=== PATIENT | male | born 1955 | race Caucasian/White ===

== ENCOUNTER 2017-03-22 12:06 | Emergency (ER) | payer BC ==
[2017-03-22 12:23] VITALS: BP 138/78
--- NOTE | 2017-03-22 12:42 | UC ---
Abdominal Pain Male HPI - HPI Summary HPI Summary: INTERMITTENT SHARP LOWER ABDOMINAL PAIN OVER THE PAST 2 WEEKS. NO NAUSEA. NO FEVER. DENIES URINARY SX. NOT AFFECTED BY EATING OR BOWEL HABITS. PT THINKS IT IS WORSE WHEN HE WEARS TIGHT FITTING PANTS. - History of Current Complaint Chief Complaint: UCAbdominalPain Stated Complaint: ABD PAIN/CRAMPS Time Seen by Provider: 03/22/17 12:28 Hx Obtained From: Patient Onset/Duration: Gradual Onset, Lasting Weeks, Still Present Severity Initially: Moderate Severity Currently: Moderate Pain Intensity: 5 Pain Scale Used: 0-10 Numeric Location: Suprapubic Radiates: No Character: Aching Associated Signs And Symptoms: Positive: Negative - Allergies/Home Medications Allergies/Adverse Reactions: Allergies Allergy/AdvReac Type Severity Reaction Status Date / Time No Known Allergies Allergy Verified 03/22/17 12:23 PMH/Surg Hx/FS Hx/Imm Hx Endocrine History: Dyslipidemia Cardiovascular History: Hypertension - Surgical History Surgical History: Yes Surgery Procedure, Year, and Place: Left inguinal HERNIA REPAIR - Family History Known Family History: Positive: Hypertension - Social History Alcohol Use: Weekly Substance Use Type: None Smoking Status (MU): Former Smoker Type: Cigarettes When Did the Patient Quit Smoking/Using Tobacco: 1989 Review of Systems Constitutional: Negative Respiratory: Negative Cardiovascular: Negative Gastrointestinal: Abdominal Pain Genitourinary: Negative All Other Systems Reviewed And Are Negative: Yes Physical Exam Triage Information Reviewed: Yes Appearance: Well-Appearing, No Pain Distress, Well-Nourished Vital Signs: Initial Vital Signs Temp 99 F 03/22/17 12:18 Pulse 82 03/22/17 12:18 Resp 18 03/22/17 12:18 BP 138/78 03/22/17 12:18 Pulse Ox 100 03/22/17 12:18 Vital Signs Reviewed: Yes Eyes: Positive: Conjunctiva Clear ENT: Positive: Hearing grossly normal Neck: Positive: Supple Respiratory: Positive: No respiratory distress, No accessory muscle use Cardiovascular: Positive: Pulses Normal Abdomen Description: Positive: Soft, Other: - SUPRAPUBIC TENDERNESS. NO REBOUND OR RIGIDITY. Negative: CVA Tenderness (R), CVA Tenderness (L), Distended, Guarding Bowel Sounds: Positive: Present Musculoskeletal: Positive: No Edema Neurological: Positive: Alert Psychological: Positive: Age Appropriate Behavior Skin: Negative: rashes Diagnostics - Laboratory Diagnostic Studies Completed/Ordered: URINE DIP UNREMARKABLE Abd Pain Male Course/Dx - Differential Dx/Clinical Impression Provider Diagnoses: LOWER ABDOMINAL PAIN, NOS Discharge - Discharge Plan Condition: Stable Disposition: HOME Patient Education Materials: Abdominal Pain (ED) Referrals: Rashad Licea MD [Primary Care Provider] - 2 Weeks Additional Instructions: URINE TEST UNREMARKABLE. UNCLEAR CAUSE OF YOUR DISCOMFORT. TRY WEARING LOOSE FITTING CLOTHING FOR THE NEXT FEW WEEKS TO SEE IF YOUR SYMPTOMS RESOLVE. IF THEY DO NOT THEN FOLLOW-UP WITH DR. LICEA. YOU MAY BENEFIT FROM IMAGING. ABDOMINAL PAIN: There are many causes of abdominal pain. Pain can mean a serious problem requiring surgery (such as appendicitis), or an innocent problem which goes away on its own (such as a viral infection). Often, time must pass to determine the cause of pain. The physician does not feel that hospitalization is necessary, at present. Conditions may change, however, within the next 24 hours. Therefore, call the doctor or come back for re-examination if any problems occur, such as: 1) Pain which becomes more severe, steady, or becomes concentrated in one specific area. Also, pain which is more severe with movement or coughing. 2) Vomiting which persists or becomes more frequent. 3) Blood in the vomitus, urine, or bowel movements. Blood in the stool may have a tarry or black appearance. 4) Shaking chills or fever greater than 100 degrees F. 5) The abdomen becomes more distended or swollen. 6) Bowel movements cease. 7) Failure to improve as expected.
== END 2017-03-22 13:09 | disposition home or self-care (01) ==
LOC: UCCORT 12:06
DX: R10.30 Lower abdominal pain, unspecified (principal); E78.5 Hyperlipidemia, unspecified; I10 Essential (primary) hypertension; Z87.891 Personal history of nicotine dependence
CPT/HCPCS: 81003; 99211; G0463

== ENCOUNTER 2017-09-06 17:24 | Emergency (ER) | payer SELFPAY ==
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
[2017-09-06 17:56] VITALS: BP 147/73
[2017-09-06] MEDS ORDERED: Silver Sulfadiazine 1%* 20 GM TOPICAL ONE (18:04)
--- NOTE | 2017-09-06 18:46 | RAD ---
INDICATION: Left elbow pain. TECHNIQUE: 2 views of the left elbow were obtained. FINDINGS: The bones are in normal alignment. No joint effusion or fracture is seen. Joint spaces appear maintained. There is a small bony spur arising from the posterior aspect of the olecranon process of the ulna. IMPRESSION: SMALL BONY SPUR, OTHERWISE UNREMARKABLE STUDY.
[2017-09-06] MEDS ORDERED: Cephalexin CAP* 500 MG PO ONE (19:00)
[2017-09-06] MEDS ORDERED: Ibuprofen TAB* 400 MG PO ONE (19:00)
== END 2017-09-06 19:17 | disposition home or self-care (01) ==
LOC: UCCORT 17:24
DX: Z87.891 Personal history of nicotine dependence (principal); Z72.89 Other problems related to lifestyle; T22.00XA Burn of unspecified degree of shoulder and upper limb, except wrist and hand, unspecified site, initial encounter; T79.9XXA Unspecified early complication of trauma, initial encounter; X08.8XXA Exposure to other specified smoke, fire and flames, initial encounter; Y93.9 Activity, unspecified; Y92.9 Unspecified place or not applicable
CPT/HCPCS: 16020; 99212; A9270-GY; G0463

== ENCOUNTER 2017-09-08 18:35 | Emergency (ER) | payer SELFPAY ==
[2017-09-08 18:54] VITALS: BP 140/74
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
[2017-09-08] MEDS ORDERED: Silver Sulfadiazine 1%* 20 GM TOPICAL ONE (19:09)
== END 2017-09-08 19:23 | disposition home or self-care (01) ==
LOC: UCCORT 18:35
DX: T22.221D Burn of second degree of right elbow, subsequent encounter (principal); X08.8XXD Exposure to other specified smoke, fire and flames, subsequent encounter; Z87.891 Personal history of nicotine dependence
CPT/HCPCS: 99213; A9270-GY; G0463

== ENCOUNTER 2017-09-10 18:41 | Emergency (ER) | payer OTHER ==
[2017-09-10] MEDS ORDERED: Silver Sulfadiazine 1%* 20 GM TOPICAL ONE (19:16)
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
[2017-09-10 19:17] VITALS: BP 134/65
== END 2017-09-10 20:31 | disposition home or self-care (01) ==
LOC: UCCORT 18:41
DX: T22.211D Burn of second degree of right forearm, subsequent encounter (principal); X08.8XXD Exposure to other specified smoke, fire and flames, subsequent encounter; I10 Essential (primary) hypertension; Z87.891 Personal history of nicotine dependence
CPT/HCPCS: 99212; A9270-GY; G0463